=== PATIENT | male | born 1970 | race Native Hawaiian/Other Pacific Islander ===

== ENCOUNTER 2019-12-11 12:07 | Outpatient (CLI) | payer OTHER | END 2019-12-11 22:07 | disposition home or self-care (01) | LOC: LAB 12:07 | DX: R50.9 Fever, unspecified (principal); R52 Pain, unspecified; R05 Cough | CPT/HCPCS: 87635; G2023; U00003 ==

== ENCOUNTER 2020-08-18 08:27 | Outpatient (CLI) | payer OTHER | END 2020-08-18 19:13 | disposition home or self-care (01) | LOC: LAB 08:27 | PROVIDERS: ATTEND Nurse Practitioner Family | DX: R50.9 Fever, unspecified (principal); R52 Pain, unspecified; R53.83 Other fatigue; Z11.59 Encounter for screening for other viral diseases | CPT/HCPCS: 87635; G2023; U0003 ==

== ENCOUNTER 2021-05-25 10:12 | Emergency (ER) | payer OTHER ==
[~2021-05-25] VITALS: Ht 160 cm; Wt 76.7 kg
[2021-05-25 10:20] VITALS: BP 175/106; TEMP 97.1
== END 2021-05-25 11:04 | disposition home or self-care (01) ==
LOC: ED 10:12
PROC: 08C Eye, Extirpation (ICD-10-PCS; principal; 2021-05-25)
DX: T15.81XA Foreign body in other and multiple parts of external eye, right eye, initial encounter (principal); X58.XXXA Exposure to other specified factors, initial encounter; Y92.89 Other specified places as the place of occurrence of the external cause
CPT/HCPCS: 99283

== ENCOUNTER 2022-03-08 14:30 | Emergency (ER) | payer OTHER ==
[~2022-03-08] VITALS: Ht 160 cm; Wt 76.7 kg
[2022-03-08 14:35] VITALS: TEMP 98.9
[2022-03-08 17:10] VITALS: BP 155/90
== END 2022-03-08 17:15 | disposition home or self-care (01) ==
LOC: ED 14:30
PROC: 0HQDXZZ Repair Right Lower Arm Skin, External Approach (ICD-10-PCS; principal; 2022-03-08)
DX: S50.11XA Contusion of right forearm, initial encounter (principal); S51.811A Laceration without foreign body of right forearm, initial encounter; W23.0XXA Caught, crushed, jammed, or pinched between moving objects, initial encounter; Y92.89 Other specified places as the place of occurrence of the external cause
CPT/HCPCS: 90471; 90715; 96372; 99283; J1885

== ENCOUNTER 2022-09-12 10:33 | Outpatient (CLI) | payer OTHER ==
[2022-09-12 10:47] LABS: PLATELET COUNT 265 K/uL (142-355)
[2022-09-12 11:07] LABS: PARTIAL THROMBOPLASTIN TIME 24.9 SECONDS (24.5-33.6)
== END 2022-09-12 20:15 | disposition home or self-care (01) ==
LOC: CT 10:33
PROVIDERS: ATTEND Orthopaedic Surgery
DX: M54.59 Other low back pain (principal); M54.16 Radiculopathy, lumbar region
CPT/HCPCS: 36415; 82565; 84520; 85027; 85610; 85730; Q9963